=== PATIENT | female | born 1980 | race Caucasian/White ===

== ENCOUNTER 2016-08-25 06:30 | Inpatient (IN) | payer OTHER ==
[2016-08-25] MEDS ORDERED: ELECTROLYTE-148 SOLN 1,000 ML IV SCH ×3 (07:00→09:48)
[2016-08-25 07:13] LABS: BASOPHIL 0.4 % (0-2.0); EOSINOPHIL 1.4 % (0-4.5); MCH 29.8 pg (25.7-33.7); MEAN CELL VOLUME 87.8 fl (80-96); MEAN PLT VOLUME 9.2 fl (7.5-11.1); NEUTROPHILS 73.2 % (42.8-82.8); PLATELET COUNT 236 K/MM3 (134-434); RDW 13.7 % (11.6-15.6); WHITE BLOOD COUNT 7.2 K/mm3 (4.0-10.0)
[2016-08-25 07:22] VITALS: BMI 31.1
[2016-08-25 07:37] LABS: CALCIUM 8.9 mg/dL (8.5-10.1); CREATININE 0.4 mg/dL (0.55-1.02)
[2016-08-25] MEDS ORDERED: CITRIC ACID/SODIUM CITRATE 30 ML UNIT-DOSE CUP PO ONE (07:45)
[2016-08-25 07:56] LABS: ACTIVATED PTT 26.4 SECONDS (26.9-34.4)
[2016-08-25 08:51] LABS: HIV 1 & 2 AB NEGATIVE; HIV 1 AGp24 NEGATIVE
[2016-08-25] MEDS ORDERED: TUBERCULIN PPD 5 TU/0.1ML SYRINGE (IN PATIENT USE ONLY) ID ONE (09:00)
[2016-08-25] MEDS ORDERED: oxyCODONE HCL 5 MG TABLET PO PRN (09:50)
[2016-08-25] MEDS ORDERED: METHYLERGONOVINE MALEATE 0.2 MG/1 ML AMP IM PRN (09:50)
[2016-08-25] MEDS ORDERED: ONDANSETRON 4 MG/2 ML VIAL IVPB PRN (09:58)
[2016-08-25] MEDS ORDERED: D5W-LR W/ 20 UNITS OXYTOCIN 1,000 ML IV SCH (10:00)
--- NOTE | 2016-08-25 10:03 | HP ---
Past Medical History - Admission Chief Complaint: 35 y/o female presented to the labor floor for repeat section she offers no other complaints, History of Present Illness: 35 y/o female grant 08/31/16 ega 39 weeks is admitted for section her antepartum care has been unremarkable History Source: Patient Limitations to Obtaining History: No Limitations - Past Medical History RCP: No: Alzheimer's, CVA, Dementia, Migraine, Multiple Sclerosis, Peripheral Neuropathy, Parkinson's, Seizure, Syncope, TIA, Vertigo, Other Cardiovascular: No: AFIB, Aneurysm, Aortic Insufficiency, Aortic Stenosis, CAD, CHF, Deep Vein Thrombosis, HTN, Hyperlipdemia, NV, Mitral Insufficiency, Mitral Stenosis, Murmur, Pulmonary Hypertension, Other Pulmonary: No: Asthma, Bronchitis, Cancer, COPD, O2 Dependent, Pneumonia, Previously Intubated, Pulmonary Embolus, Pulmonary Fibrosis, Sleep Apnea, Other Gastrointestinal: No: Ascites, Cancer, Constipation, Crohn's Disease, Diverticulitis, Diverticulosis, Esophageal Varices, Gastritis, GERD, GI Bleed, Hemorrhoids, Hiatal Hernia, Inflamatory Bowel Disease, Irritable Bowel Disease, Pancreatitis, Peptic Ulcer Disease, Ulcerative Colitis, Other Hepatobiliary: No: Cirrhosis, Cholelithiasis, Cholecystitis, Choledocholithiasis , Hepatitis A, Hepatitis B, Hepatitis C, Other Renal/: No: Renal Failure, Renal Inusuff, BPH, Cancer, Hematuria, Hemodialysis , Neurogenic Bladder, Renal Calculi, UTI, Other ...: 4 ...Para: 2 ...Term: 2 ...: 0 ...Spon : 1 ...Induced : 0 ...Multiple Gestation: 0 ...LMP: 11/26/15 ... Weeks Gestation by Dates: 39.1 ...EDC by Dates: 08/31/16 ...EDC by Sono: 08/31/16 Heme/Onc: Yes: Anemia Infectious Disease: No: AIDS, C-Diff, Herpes Zoster, HIV, MRSA, STD's, Tuberculosis, VREF, Other Psych: No: Addictions, Anxiety, Bipolar, Depression, Panic, Psychosis, Schizophrenia, Other Musculoskeletal: No: Bursitis, Chronic low back pain, Hemiparesis, Hemiplegia, Osteoarthritis, Paraplegia, Other Rheumatology: No: Fibromyalgia, Gout, Lupus, Rheumatoid Arthritis, Sarcoidosis, Vasculitis, Other ENT: No: Allergic Rhinitis, Sinusitis, Other Endocrine: No: Wil's Disease, [place]'s Disease, Diabetes Insipidus, Diabetes Mellitus, Hyperparathyroidism, Hyperthyroidism, Hypothyroidism, Osteopenia, SIADH, Other Dermatology: No: Basal Cell, Cellulitis, Eczema, Melanoma, Psoriasis, Squamous Cell, Other - Past Surgical History Past Surgical History: Yes: Hx Myomectomy: No Hx Transabdominal Cerclage: No - Smoking History Smoking history: Never smoked Have you smoked in the past 12 months: No - Alcohol/Substance Use Hx Alcohol Use: No - Social History Usual Living Arrangement: Yes: With Spouse Home Medications - Allergies Allergies/Adverse Reactions: Allergies Allergy/AdvReac Type Severity Reaction Status Date / Time No Known Allergies Allergy Verified 08/25/16 07:24 - Home Medications Home Medications: Ambulatory Orders Vit/Iron Fumarate/FA [ Tablet] 1 tab PO DAILY 08/25/16 Family Disease History - Family Disease History Family History: Unremarkable Review of Systems - Review of Systems Constitutional: reports: No Symptoms HENT: reports: No Symptoms Neck: reports: No Symptoms Cardiovascular: reports: No Symptoms Respiratory: reports: No Symptoms Gastrointestinal: reports: No Symptoms, Vomiting Blood Genitourinary: reports: No Symptoms Breasts: reports: Lumps Musculoskeletal: reports: No Symptoms Integumentary: reports: No Symptoms Neurological: reports: No Symptoms Endocrine: reports: No Symptoms Hematology/Lymphatic: reports: No Symptoms Psychiatric: reports: No Symptoms Physical Exam - Maternity Vital Signs: Vital Signs Temperature 97.7 F 08/25/16 06:30 Pulse Rate 72 08/25/16 06:30 Respiratory Rate 18 08/25/16 06:30 Blood Pressure 106/51 08/25/16 06:30 O2 Sat by Pulse Oximetry (%) Constitutional: Yes: Well Nourished, No Distress, Calm Eyes: Yes: WNL, Conjunctiva Clear HENT: Yes: WNL, Atraumatic, Normocephalic Neck: Yes: WNL, Supple Cardiovascular: Yes: WNL, Regular Rate and Rhythm Lungs: Clear to auscultation Breast(s): Yes: WNL - Abdominal Exam/OB Number of Fetuses: Single Presentation: Vertex Contractions: No Intensity: Unaware Monitor Mode: External Heart Rate (range): 140 Heart Rate Location: [facility] Category: I Accelerations: Uniform Decelerations: None - Vaginal Exam/OB Vaginal Bleediing: No Speculum Exam: No Amniotic Membrane Status: Intact Presentation: Vertex/Position Station: -1 - Physical Exam Musculoskeletal: Yes: WNL Extremities: Yes: WNL Edema: No Integumentary: Yes: WNL Deep Tendon Reflex Grade: Normal +2 ...Motor Strength: WNL Psychiatric: Yes: WNL, Oriented - Labs Lab Results: CBC, BMP 08/25/16 06:55 08/25/16 06:55 Assessment/Plan intrauterine at term h/o previous section for repeat section.
--- NOTE | 2016-08-25 10:16 | OP ---
Operative Note - Note: Operative Date: 08/25/16 Pre-Operative Diagnosis: iup at term for repeat section Operation: repeat section bilateral tubal ligation Findings: living male infant normal looking tubes and ovaries Post-Operative Diagnosis: Same as Pre-op Surgeon: Elizabeth Hinojosa Lithoplate Maker: Joe Alejo Anesthesiologist/STUDENT SUCCESS ADVISOR: Luciana Jenkins Anesthesia: Spinal Specimens Removed: placenta segments of tubes right and left Estimated Blood Loss (mls): 400 Drains & Tubes with Location: cherry to gravity Blood Volume Replaced (mls): 0 Fluid Volume Replaced (mls): 1,000 Operative Report Dictated: Yes
[2016-08-25] MEDS: PRENATAL VITAMINS W/ FOLIC ACID TABLET (FP) PO SCH (10:31)
[2016-08-25] MEDS: FERROUS SO4 325 MG TABLET (FP) PO SCH ×2 (10:31→21:39)
[2016-08-25] MEDS ORDERED: IBUPROFEN 800 MG/8 ML IJ IVPB PRN (14:59)
--- NOTE | 2016-08-26 06:47 | PN ---
Progress Note (SOAP) - Subjective Chief Complaint: Pt doing well SP Section - Current Medications Current Medications: Active Medications Acetaminophen (Tylenol -) 650 mg PO Q6H PRN PRN Reason: PAIN Bisacodyl (Dulcolax Suppository -) 10 mg RC PRN PRN PRN Reason: CONSTIPATION Diphtheria/Tetanus/Acell Pertussis (Boostrix -) 0.5 ml IM .ONCE ONE Stop: 08/26/16 10:01 Ferrous Sulfate (Feosol -) 325 mg PO BID [facility] Last Admin: 08/25/16 21:39 Dose: Not Given Parenteral Electrolytes (Plasma-Lyte 148 -) 1,000 mls @ 125 mls/hr IV ASDIR [facility] Last Admin: 08/25/16 10:31 Dose: Not Given Dextrose/Lactated Ringer's (Pitocin 20 Units In D5-Lr -) 1,000 mls @ 125 mls/ hr IV ASDIR [facility] Last Admin: 08/25/16 10:30 Dose: 125 mls/hr Ibuprofen (Motrin -) 600 mg PO Q4H PRN PRN Reason: PAIN Ibuprofen (Caldolor Injection -) 800 mg IVPB Q8H PRN PRN Reason: PAIN Last Admin: 08/25/16 15:00 Dose: 800 mg Methylergonovine Maleate (Methergine Injection -) 0.2 mg IM Q4H PRN PRN Reason: Excessive Bleeding (L&D) Oxycodone HCl (Roxicodone -) 10 mg PO Q4H PRN PRN Reason: PAIN LEVEL 6-10 Multivit/Folic Acid/Iron ( Vitamins (Sjr) -) 1 tab PO DAILY [facility] Last Admin: 08/25/16 10:31 Dose: Not Given Simethicone (Mylicon -) 80 mg PO Q4H PRN PRN Reason: GAS - Objective Vital Signs: Vital Signs Temperature 98.1 F 08/26/16 06:00 Pulse Rate 80 08/26/16 06:00 Respiratory Rate 18 08/26/16 06:00 Blood Pressure 98/60 08/26/16 06:00 O2 Sat by Pulse Oximetry (%) 100 08/25/16 10:30 Constitutional: Yes: Well Nourished, No Distress Neck: Yes: WNL Respiratory: Yes: WNL Gastrointestinal: Yes: WNL, Soft ....Post : Yes: Uterus firm, Uterus non-tender Breast(s): Yes: WNL Musculoskeletal: Yes: WNL Extremities: Yes: WNL Edema: No Wound/Incision: Yes: Clean/Dry, Well Approximated Neurological: Yes: WNL, Alert, Oriented Labs Lab Results: CBC, BMP 08/25/16 06:55 08/25/16 06:55 Problem List - Problems (1) delivery delivered Code(s): O82 - ENCOUNTER FOR DELIVERY WITHOUT INDICATION Assessment/Plan POD1 Repeat CS and BTL Plan OOB Percocet
[2016-08-26 07:32] LABS: BASOPHIL 0.2 % (0-2.0); EOSINOPHIL 0.6 % (0-4.5); MCH 29.1 pg (25.7-33.7); MCHC 33.2 g/dl (32.0-36.0); MEAN CELL VOLUME 87.7 fl (80-96); MEAN PLT VOLUME 9.4 fl (7.5-11.1); PLATELET COUNT 215 K/MM3 (134-434); WHITE BLOOD COUNT 11.8 K/mm3 (4.0-10.0)
[2016-08-26] MEDS: ACETAMINOPHEN 325 MG TABLET (FP) PO PRN ×3 (07:44→19:40)
[2016-08-26] MEDS: IBUPROFEN 600 MG TABLET (FP) PO PRN ×3 (07:45→19:39)
[2016-08-26] MEDS: SIMETHICONE 80 MG TAB.CHEW (FP) PO PRN ×2 (07:46→21:12)
[2016-08-26] MEDS: FERROUS SO4 325 MG TABLET (FP) PO SCH ×2 (09:07→21:12)
[2016-08-26] MEDS: PRENATAL VITAMINS W/ FOLIC ACID TABLET (FP) PO SCH (09:07)
[2016-08-26] MEDS ORDERED: BISACODYL 10 MG SUPP.RECT RC PRN (09:51)
[2016-08-26] MEDS ORDERED: PRENATAL VITAMINS W/ FOLIC ACID TABLET (FP) PO SCH (10:00)
--- NOTE | 2016-08-26 12:04 | PN ---
Progress Note (short form) - Note Progress Note: Anesthesia postop note 35 y/o F s/p spinal anesthesia for repeat c/s POD1, vss, aaox3, pain well controlled, no complaints. No anesthesia complications.
[2016-08-27] MEDS: ACETAMINOPHEN 325 MG TABLET (FP) PO PRN ×2 (06:46→17:56)
[2016-08-27] MEDS: IBUPROFEN 600 MG TABLET (FP) PO PRN ×2 (06:47→17:57)
--- NOTE | 2016-08-27 06:57 | PN ---
Post Progress Note - Subjective Subjective: Pt doing well, has no complaints today. Tolerating diet, ambulating, voiding. Lochia minimal. Type of Delivery: Repeat C/S Vital Signs: Vital Signs Temperature 98.2 F 08/26/16 21:12 Pulse Rate 75 08/26/16 21:12 Respiratory Rate 16 08/26/16 21:12 Blood Pressure 99/68 08/26/16 21:12 O2 Sat by Pulse Oximetry (%) 100 08/25/16 10:30 Breast Exam: Yes: Soft Uterus: Yes: Fundus Firm Incision: Yes: Other (incision c/d/i with no erythema/exudate) Abdomen/GI: Yes: Abdomen soft, Passing flatus. No: Abdominal Distention, Tender Perineum: Yes: Intact Activity: Ambulating - Labs Labs: CBC WBC 11.8 K/mm3 (4.0-10.0) H D 08/26/16 06:10 RBC 4.05 M/mm3 (3.60-5.2) 08/26/16 06:10 Hgb 11.8 GM/dL (10.7-15.3) 08/26/16 06:10 Hct 35.5 % (32.4-45.2) 08/26/16 06:10 MCV 87.7 fl (80-96) 08/26/16 06:10 MCHC 33.2 g/dl (32.0-36.0) 08/26/16 06:10 RDW 14.0 % (11.6-15.6) 08/26/16 06:10 Plt Count 215 K/MM3 (134-434) 08/26/16 06:10 MPV 9.4 fl (7.5-11.1) 08/26/16 06:10 Neutrophils % 82.0 % (42.8-82.8) 08/26/16 06:10 Lymphocytes % 11.2 % (8-40) D 08/26/16 06:10 Monocytes % 6.0 % (3.8-10.2) 08/26/16 06:10 Eosinophils % 0.6 % (0-4.5) 08/26/16 06:10 Basophils % 0.2 % (0-2.0) 08/26/16 06:10 Problem List - Problems (1) delivery delivered Code(s): O82 - ENCOUNTER FOR DELIVERY WITHOUT INDICATION Assessment/Plan Pt doing well continue PO pain meds, regular diet continue ambulation Hgb 11.8 post op routine care
[2016-08-27] MEDS: FERROUS SO4 325 MG TABLET (FP) PO SCH ×2 (09:41→21:25)
[2016-08-27] MEDS: PRENATAL VITAMINS W/ FOLIC ACID TABLET (FP) PO SCH (09:41)
[2016-08-28 07:36] LABS: BASOPHIL 0.2 % (0-2.0); EOSINOPHIL 1.1 % (0-4.5); MCHC 33.8 g/dl (32.0-36.0); MEAN CELL VOLUME 88.7 fl (80-96); MEAN PLT VOLUME 9.1 fl (7.5-11.1); NEUTROPHILS 83.2 % (42.8-82.8); PLATELET COUNT 260 K/MM3 (134-434); WHITE BLOOD COUNT 8.6 K/mm3 (4.0-10.0)
--- NOTE | 2016-08-28 09:13 | DS ---
Physical Exam-DIAL PAINTER Vital Signs: Vital Signs Temperature 98.6 F 08/27/16 22:00 Pulse Rate 74 08/27/16 22:00 Respiratory Rate 18 08/27/16 22:00 Blood Pressure 117/68 08/27/16 22:00 O2 Sat by Pulse Oximetry (%) 100 08/25/16 10:30 Constitutional: Yes: Well Nourished Eyes: Yes: Conjunctiva Clear HENT: Yes: Atraumatic Neck: Yes: Supple, Trachea Midline Cardiovascular: Yes: Regular Rate and Rhythm Respiratory: Yes: Regular, CTA Bilaterally Gastrointestinal: Yes: Normal Bowel Sounds Wound/Incision: Yes: Clean/Dry, Steri Strips (in place) Neurological: Yes: Alert, Oriented ...Motor Strength: WNL Psychiatric: Yes: Alert, Oriented Labs: CBC, BMP 08/28/16 06:35 08/25/16 06:55 Delivery - Delivery Type of Anesthesia: Spinal Delivery, Single - Stages of Labor Date of Delivery: 08/25/16 Time of Delivery: 08:49 Time Placenta Delivered: 08:50 - Condition of Infant Caustics Loader/Manager Of Global Present: Yes Name: Bruna Aguila Infant Gender: Male Weight: 7 lb 7 oz Position: Left, OA Total Hours ROM (Hrs/Mins): 2 minutes - 1 Minute Total Score: 9 5 Minutes Total Score: 9 - Feeding Plan Initial Plan: Elected not to breastfeed exclusively throughout hospitalization Discharge Summary Reason For Visit: ADMIT Current Active Problems delivery delivered (Acute) Procedures: Principal: delivery Hospital Course: Routine post op care Condition: Good - Instructions Diet, Activity, Other Instructions: Regular diet No driving, no lifting x 4 weeks F/U with MD in 2 weeks Referrals: Elizabeth Hinojosa [Staff Physician] - Disposition: HOME - Home Medications Comprehensive Discharge Medication List: Ambulatory Orders Vit/Iron Fumarate/FA [ Tablet] 1 tab PO DAILY 08/25/16
[2016-08-28 09:30] VITALS: BP 126/60; PULSE 100; TEMP 98.1
[2016-08-28] MEDS: FERROUS SO4 325 MG TABLET (FP) PO SCH (09:44)
[2016-08-28] MEDS: IBUPROFEN 600 MG TABLET (FP) PO PRN (09:44)
[2016-08-28] MEDS: PRENATAL VITAMINS W/ FOLIC ACID TABLET (FP) PO SCH (09:44)
[2016-08-28] MEDS: ACETAMINOPHEN 325 MG TABLET (FP) PO PRN (09:45)
--- NOTE | 2016-08-28 13:48 | PATH ---
Surgical Pathology Report Patient Name: PRIMO VASQUES [facility]. Rec. #: [id number] /Age/Gender: 1980 (Age: 35) / F Account: [id number] Location: [facility] OBS/MANAGER CIVIL Taken: 08/25/2016 Received: 08/26/2016 Reported: 08/28/2016 Physicians: Elizabeth Cutler Specimen(s) Received A: PLACENTA B: PORTION RIGHT FALLOPIAN TUBE C: PORTION LEFT FALLOPIAN TUBE Clinical History 39.1 weeks' gestation, repeat SPAB x1 Final Diagnosis A. PLACENTA, DELIVERY: SMALL (344 GRAM) FOCALLY DISRUPTED THIRD TRIMESTER PLACENTA WITH 3 VESSEL UMBILICAL CORD AND UNREMARKABLE PLACENTAL MEMBRANES. B. RIGHT FALLOPIAN TUBE, PARTIAL EXCISION: FULL LUMINAL PORTION OF UNREMARKABLE FALLOPIAN TUBE. C. LEFT FALLOPIAN TUBE, PARTIAL EXCISION: FULL LUMINAL PORTION OF UNREMARKABLE FALLOPIAN TUBE. Electronically Signed Marcel Lin M.D. Gross Description A. The specimen is received fresh labeled placenta and is a 344 gram, 14.0 x 12.0 x 3.4 cm. placenta with attached membranes and umbilical cord. The attached membranes are patiño, translucent with focal opacities and insert marginally. The umbilical cord measures 25 cm. in length and averages 1.2 cm. in diameter. The cord inserts eccentrically, 3.5 cm. to the nearest margin. No true knots or strictures are identified. Cut surface of the umbilical cord reveals 3 vessels. The surface is perez blue with moderate fibrin deposition and appropriate caliber vessels. The maternal surface is red-brown with focal defects. Sectioning reveals red-brown, spongy parenchyma. No lesions are identified. Admissions Coordinator sections are submitted in three cassettes as follows: 1- membrane rolls and umbilical cord; 2-3- full thickness sections of placenta. B. Received in formalin, labeled "right portion of fallopian tube," is a 2 cm in length portion of fallopian tube. No fimbria are present. The outer surface is patiño-gilmore and smooth. Sectioning reveals an unremarkable lumen. Admissions Coordinator sections are submitted in one cassette. C. Received in formalin, labeled "left portion of fallopian tube," is a 2.2 cm in length portion of fallopian tube. No fimbria are present. The outer surface is patiño-gilmore and smooth. Sectioning reveals an unremarkable lumen. Admissions Coordinator sections are submitted in one cassette. 08/27/2016 [facility]
--- NOTE | 2016-10-21 07:25 | OP ---
DATE OF OPERATION: 08/28/2016 DICTATING PHYSICIAN: Harleen Villatoro MD PREOPERATIVE DIAGNOSIS: Intrauterine at term, previous section, multiparity. PROCEDURE ON THIS ADMISSION: A repeat low segment transverse section, bilateral tubal ligation. OUTCOME: Delivery of male infant, score 9 and 9. CONDITON OF PATIENT: Stable. ESTIMATED BLOOD LOSS: Approximately 500 mL. ANESTHESIA GIVEN: Epidural. COMPLICATIONS: None. CONDITION OF PATIENT: Stable to recovery room. DESCRIPTION OF PROCEDURE: The patient was prepped and draped in the usual sterile fashion. After adequate anesthesia was obtained via spinal, using the first knife, an incision was made transversely in the lower abdomen at the level of the previous incisional scar. The incision was taken down to the fascia, where the fascia was incised in the midline, and that incision was extended bilaterally using scissors and cautery. Good hemostasis was obtained at the opening of each layer. Then, the muscles were in the midline exposing the peritoneum. The peritoneal layer was grasped with 2 Sari. Assuming there is no presence of intraabdominal tissue underneath, the peritoneal layer was incised in an upward and downward fashion, and a Dyer retractor was placed in the lower uterine segment. A bladder flap was created by the bladder peritoneum from the lower uterine segment and retracting the bladder in a downward fashion, and using the 2nd knife, the lower uterine segment was incised and that incision was extended in a bilateral fashion. At that point, an amniotomy was performed revealing clear amniotic fluid, and the was delivered from the CARSON cephalic presentation. Once the head was delivered, the nose and oropharynx were suctioned with bulb syringe. Then, placing gentle pressure on the abdomen, the shoulders were delivered, and the was fully expulsed. The infant cried spontaneously. Immediately after delivery, the umbilical cord was doubly clipped and cut, and the infant was given to the skin peeling machine operator delivery. Cord blood was subsequently collected, and the placenta was removed from the cavity. The cavity was freed of all membrane and of all blood clots, and the uterine incision was then closed in 2 layers, the 2nd layer being on imbricative stitch. Subsequently, attention was given to the left tube, which was grasped with Jenni and brought to the level of the incision, was doubly sutured using 0 chromic suture, and the same procedure was repeated on the contralateral side. The loop of tube was excised and was sent to Pathology for evaluation and identification. The uterus was then returned to the pelvic floor. The floor was freed of all membrane, was irrigated with warm saline, and good hemostasis was ensured, and the peritoneal layer was grasped with Sari and was closed in a running fashion using 0 Biosyn sutures, and the fascia was closed in a running fashion using 0 Biosyn. The muscles were approximated in the midline, and the subcutaneous tissue was approximated with interrupted stitches of 2-0 Vicryl, and the skin was closed with subcuticular stitches of 2-0 Vicryl on a Caleb needle. Good hemostasis was ensured following the closure of each layer. The final closure of the skin incision was with Steri-Strips. The patient sustained the procedure well. Her incision was draped, and she was taken to post-anesthesia recovery in stable condition, and the was taken to the infant nursery in stable condition. score given to the was 9 and 9. Both maternal and conditions were stable at the end of the procedure. HARLEEN VILLATORO M.D. [id number]
== END 2016-08-28 11:15 | disposition home or self-care (01) | DRG 766 ==
LOC: JLDR 06:30 → J3W 11:42
PROVIDERS: ADMIT Obstetrics & Gynecology; ATTEND Obstetrics & Gynecology
PROC: 10D00Z1 Extraction of Products of Conception, Low, Open Approach (ICD-10-PCS; principal; 2016-08-25)
PROC: 0UL70ZZ Occlusion of Bilateral Fallopian Tubes, Open Approach (ICD-10-PCS; 2016-08-25)
DX: O34.219 Maternal care for unspecified type scar from previous cesarean delivery (principal); Z3A.39 39 weeks gestation of pregnancy; Z37.0 Single live birth; Z30.2 Encounter for sterilization
CPT/HCPCS: 36415; 80048; 85025; 85610; 85730; 86593; 86850; 86900; 86901; 87389; 88302-TC; 88307-TC; 90715